=== PATIENT | male | born 1990 | race Native Hawaiian/Other Pacific Islander ===

== ENCOUNTER 2021-06-18 07:46 | Day surgery (SDC) | payer OTHER ==
[2021-06-18] VITALS (8 sets, daily range): BP systolic 127–155; BP diastolic 68–91
[~2021-06-18] VITALS: Ht 185.4 cm; Wt 95.0 kg
--- NOTE | 2021-06-18 08:00 | NUR ---
PATIENT ARRIVE TO ROOM ESCORTED BY ANR NURSE. THIS NURSE HOUSEHOLD APPLIANCE ASSEMBLER DONE AT THIS TIME. LUNG FIELD ARE CLEAR, PATIENT LISET ANY PAIN. PATIENT DOES PRESENT WITH BILATERAL LOWER LEG OPEN WOUNDS DUE TO INJECTION OF DRUGS PER PATIENT. WOUNDS ARE COVERED AT THIS TIME WITH TELF PAD AND OP SITE. PATIENT EXPLAINED ROOM SAFETY AND SIDERAILS ARE UP X 2 AND CALL LIGHT IS WITHIN REACH. ANR NURSE TENZIN WITH PATIENT AT THIS TIME.
--- NOTE | 2021-06-18 10:10 | NUR ---
DR. GREEN PL[address] #22 EJ ON RIGHT SIDE. PATIENT TOLERATED WELL.
[2021-06-18 11:26] LABS: MEAN CELL VOLUME 79.6 fL CALC (80.0-100.0); MEAN CORPUSCULAR HGB 25.8 pG CALC (26.0-32.0); MEAN CORPUSCULAR HGB CONC 32.4 g/dL CAL (32.0-36.0); NEUT# 3.17 thou/uL (1.82-7.42); RED BLOOD COUNT 4.65 mill/uL (4.70-6.10); RED CELL DISTRI WIDTH 15.1 % (11.5-15.5)
[2021-06-18 11:36] LABS: ALBUMIN 4.1 g/dL (3.2-5.0); ALKALINE PHOSPHATASE 109 u/l (38-126); ANION GAP 11 (6-22 (CALC)); BILIRUBIN, TOTAL 0.5 mg/dL (0.0-1.4); BUN 11 mg/dL (9-20); BUN/CREATININE RATIO 16 (12-20 (CALC)); CARBON DIOXIDE 28 mmol/l (22-30); CHLORIDE 102 mmol/l (95-108); CREATININE 0.7 mg/dL (0.7-1.3); GFR > 60 ML/MIN (>=60 (CALC)); GFR FOR AFR.AMER. > 60 ML/MIN (>=60 (CALC)); POTASSIUM 4.4 mmol/l (3.5-5.1); SGOT/AST 28 u/l (17-59); SODIUM 137 mmol/l (137-146); TOTAL PROTEIN 8.5 g/dL (6.3-8.2)
--- NOTE | 2021-06-18 12:20 | NUR ---
PATIENT LAYING IN BED AT THIS TIME. PATIENT DEINES ANY NEEDS AND IS WAITING ON ANR PROCEEDURE AT THIS TIME.
--- NOTE | 2021-06-18 14:17 | NUR ---
PATIENT TAKEN DOWN TO TRAUMA ROOM FOR ANR PROCEEDURE BY BED AND ESCORTED BY DR. MARTIN.
--- NOTE | 2021-06-18 15:51 | NUR ---
PATIENT REMAINS DOWN IN ANR PROCEEDURE AT THIS TIME.
--- NOTE | 2021-06-18 18:15 | NUR ---
PATIENT REMAIN DOWN IN ANR PROCEEDURE.
[2021-06-19 04:00] VITALS: BP 139/76
--- NOTE | 2021-06-19 07:15 | NUR ---
PATIENT LAYING IN BED AT THIS TIME. ALERT AND ORIENTED SIDERAILS ARE UP X 4 PER ANR PROCEEDURE. SPA MANAGER DONE SEE INTERVETIONS. RESPIRATIONS ARE EVEN AND UN-LABORED AT THIS TIME.
[2021-06-19 07:37] VITALS: BP 132/72
--- NOTE | 2021-06-19 10:36 | NUR ---
patient given 4mg iv zofran at this time for nausea and vomitting at this time.
--- NOTE | 2021-06-19 11:48 | NUR ---
PATIENT RESTING IN BED DENIES ANY NEEDS SIDERAILS ARE UP CALL LIGHT WITHIN REACH.
--- NOTE | 2021-06-19 12:45 | NUR ---
EMILY GARZA AND LLOYD GARZA REQUESTED FOR DR. BRYANT 3 PRESCRIPTIONS SHEETS FOR THIS PATIENT. THIS NURSE PULLED 3 PRESCRIPTIONS SHEETS OUT FOR THIS PATIENT AND GAVE THEM TO LLOYD.
--- NOTE | 2021-06-19 14:31 | NUR ---
PT WALKING DOWN JIMENEZ; DIRECTED BACK TO ROOM; PT STATES BED IS "KILLING HIM"; ASK PT TO ELABORATED; STATES HE IS HAVING LOWER BACK PAIN; DR. BRYANT NOTIFIED; ORDERS RECEIVED; PT MEDICATED ORDERED;
[2021-06-19 15:16] VITALS: BP 154/94
--- NOTE | 2021-06-19 16:32 | NUR ---
PATIENT CONTINUES TO HAVE PROJECTILE VOMITTING YELLOW IN COLOR AND LARGE AMOUNTS. REPORTED TO EMILY DALLAS NURSE AND ORDERS GIVEN TO GIVE LACTATED RINGERS AT 100MLS PER HOUR. DRESSING CHANGED ON BILATERAL LEG WOUNDS DRY TELFA AND OP SITE APPLIED.
--- NOTE | 2021-06-19 17:55 | NUR ---
patient disconnected iv by self found standing in shower with water running on. PATIENT STATES HE IS FINE WILL CONTINUE TO MONITOR.
[2021-06-19 19:30] VITALS: BP 144/83
[2021-06-20] VITALS: BP 125/70
[2021-06-20 04:00] VITALS: BP 131/81
--- NOTE | 2021-06-20 06:59 | NUR ---
PATIENT LAYING IN BED AT THIS TIME. SIDERAIL ARE UP CALL LIGHT WITHIN REACH. PATIENT STATES HE FEELS BETTER TODAY THAN YESTERDAY. SPECIALTY COOK DONE SEE INTERVENTIONS.
[2021-06-20 07:49] VITALS: BP 135/92
--- NOTE | 2021-06-20 10:00 | NUR ---
PATIENT D/C AT TIME. PATIENT WALKED OUT BY EMILY GARZA FROM ANR PROGRAM AT THIS TIME. PATIENT LEFT IN STABLE CONDITION.
== END 2021-06-20 10:00 | disposition home or self-care (01) | DRG 897 ==
LOC: ANR 07:46 → MS2 07:49 → ANR 09:56
PROVIDERS: ATTEND Anesthesiology
DX: F11.20 Opioid dependence, uncomplicated (principal)
CPT/HCPCS: J2060; J2354